=== PATIENT | male | born 1970 | race Caucasian/White ===

== ENCOUNTER 2020-05-08 14:59 | Emergency (ER) | payer SELFPAY ==
[~2020-05-08] VITALS: Ht 160 cm; Wt 77.1 kg
[2020-05-08 15:08] VITALS: BP 124/92; Ht 160 cm; Wt 77.1 kg
== END 2020-05-08 16:59 | disposition left against medical advice (07) ==
LOC: ED 14:59
DX: M25.572 Pain in left ankle and joints of left foot (principal)